=== PATIENT | female | born 1950 | race African-American/Black ===

== ENCOUNTER 2017-02-18 10:07 | Emergency (ER) | payer OTHER ==
[~2017-02-18] VITALS: Ht 157.5 cm; Wt 83.0 kg
[~2017-02-18 10:07] MED LIST: Ibuprofen PO; OMEP20CA10 PO
[2017-02-18] MEDS ORDERED: IBUPROFEN 600MG TABLET PO ONE (12:00)
[2017-02-18] MEDS ORDERED: METHOCARBAMOL 500MG TABLET PO ONE (12:00)
[2017-02-18 12:05] VITALS: BP 151/103
== END 2017-02-18 12:39 | disposition left against medical advice (07) ==
LOC: ER 10:23
DX: M54.5 Low back pain (principal); I10 Essential (primary) hypertension; E78.00 Pure hypercholesterolemia, unspecified
CPT/HCPCS: 99282